=== PATIENT | male | born 1970 | race Caucasian/White ===

== ENCOUNTER 2016-11-09 18:57 | Emergency (ER) | payer OTHER ==
[~2016-11-09] VITALS: Ht 182.9 cm; Wt 97.7 kg
[2016-11-09 19:02] VITALS: BP 126/66; PULSE 120; RESP 20; O2SAT 98
--- NOTE | 2016-11-09 19:45 | ED.REPORT ---
HPI-Extremity Problem Upper Date of Service Nov 09, 2016 ED Provider: Tono Kerns DO Pt is a 45 year old male with a history of HTN who presents to the ED complaining of left arm pain onset today. He c/o associated difficulty moving his left arm and left arm swelling. He denies any other symptoms. Pt reports that he was pulling himself into a truck with his left arm when he felt it a "tearing sensation" followed by pain. Nursing Notes Stated Complaint: LEFT ARM Chief Complaint: Extremity Trauma Nursing Notes Reviewed: Yes Allergies: Coded Allergies: No Known Allergies (Unverified Allergy, Unknown, 11/09/16) General Time Seen by MD: 19:45 Chief Complaint Arm injury left Hx Obtained From: Patient Arrived By: Walk-in Onset Occurred: Onset unknown Symptom Duration: Since onset Caused by: Accidental Location: : Arm left Quality: Painful Severity: Current: Moderate Severity: Maximum: Moderate Recent Healthcare: No recent doctor visit, No recent hospitalization Similar Sx Previous: No Past Medical History Past Medical History Reports: Hypertension Past Surgical History Denies Smoking History Unknown if Ever Smoker Social History Drug Use: Denies drug use Ambulatory Status Independent Review of Systems + Decreased ROM in left arm Constitutional: Denies: Fever Musculoskeletal: Reports: Extremity pain, Extremity swelling Complete sys rev & neg: except as marked. Physical Exam Initial Vital Signs Vital Signs (First) Date Time Temp Pulse Resp B/P Pulse Ox O2 Delivery O2 Flow Rate FiO2 11/09/16 19:02 37.0 120 20 126/66 98 Room Air Initial VS: Reviewed Head / Eyes: Atraumatic, Normocephalic Neck: Supple, Full range of motion Respiratory: Breath sounds normal, Clear to auscultation, No respiratory distress Cardiovascular: Regular rate & rhythm, Heart sounds normal, Intact distal pulses Abdomen / GI: Soft, Non-tender Lower Extremities: Vascular intact, Neuro intact Skin: Warm, Dry, No cyanosis Neurologic: Alert, Oriented, Nonfocal Psychiatric: Mood/affect normal, Behavior normal General/Constitutional: Awake, Alert Upper Extremity / MS: Neurologic intact, Vascular intact Distal tendon bicep rupture left arm Interpretation & Diagnostics X-Ray Interpretation Xray Interpretation: IMPRESSION: No fracture. No osseous lesion. If there are persistent symptoms or clinical suspicion for pathology, then repeat radiographs or advanced imaging (CT, MRI or bone scan) should be considered for further evaluation. Dictated by: Melinda Mathew MD, PhD on 11/09/2016 at 20:26 X-Ray Ordered: Elbow left Interpretation / Wet Read by: Interpret - Radiologist Re-Eval/Medical Decision Source of Hx: Old records Re-Evaluation/Progress : Time of Eval: 20:25 Re-Evaluation/Progress Note: Pt rechecked. Informed pt of plan for discharge. Pt understands and agrees with plan for discharge. F/U instructions and RTER warnings given. All questions addressed. Consultation : Referral / Consult Name: Matthew Gomez MD Consulted With: Orthopedic Call Returned at: 20:52 Note: Consulted with Jason. Discussed pt's case and informed of pt's plan to call for follow up appointment tomorrow. Counseled Regarding: Diagnosis, Need for follow-up, When/why to return to ED Discharge & Departure Impression: Primary Impression: Rupture of distal biceps tendon Encounter type: initial encounter Laterality: left Qualified Code: S46.212A - Strain of muscle, fascia and tendon of other parts of biceps, left arm, initial encounter Disposition: Home Discharge Condition All VS Reviewed: Yes Condition: Stable Patient Instructions: Tendon Rupture (ED) Additional Instructions: Keep your left arm immobilized in the sling until your follow-up with orthopedics. Take Percocet 1-2 every 6 hours for severe pain. Do not drive or drink alcohol or consume acetaminophen while taking Percocet. Take Naprosyn 2x daily for moderate pain. Call the referral orthopedics tomorrow for a follow-up appointment this week. I suspect surgery may be necessary. Return to the Emergency Department for any new or worrisome symptoms. Referrals: Deacon Carrillo MD (PCP) Matthew Gomez MD Attestation Portions of this note were transcribed by Loren Gunderson. I, Dr. Kerns personally performed the history, physical exam and medical decision-making; I reviewed and confirmed the accuracy of the information in the transcribed note. Signed by : Kathie Dominguez, 11/09/16. copies to: Deacon Carrillo MD; Matthew Gomez MD, Todd P DO Nov 09, 2016 19:45 Loren Salcedo Nov 09, 2016 20:00
--- NOTE | 2016-11-09 20:29 | DRSVH ---
PROCEDURE: X-RAY LEFT ELBOW COMPLETE, MINIMUM THREE VIEWS ([id number]) INDICATIONS: distal bicep tendon rupture TECHNIQUE: 3 views of the elbow were acquired. COMPARISON: None. FINDINGS: Bones: No fractures or dislocations. No suspicious bony lesions. Soft tissues: No elbow joint effusion. No suspicious soft tissue calcifications. IMPRESSION: No fracture. No osseous lesion. If there are persistent symptoms or clinical suspicion f or pathology, then repeat radiographs or advanced imaging (CT, MRI or bone scan) should be considered for further evaluation. Dictated by: Melinda Mathew MD, PhD on 11/09/2016 at 20:26 Approved by: Melinda Mathew MD, PhD on 11/09/2016 at 20:27
[2016-11-09] MEDS ORDERED: _HYDROcodone/APAP 5-325 mg Tablet PO PRN (21:05)
[2016-11-12] MEDS ORDERED: LOSA50TA37 PO (12:56)
[2016-11-12] MEDS ORDERED: OXYC-407 PO (12:56)
[2016-11-12] MEDS ORDERED: NAPR500T PO (12:56)
[2016-11-12] MEDS ORDERED: testosterone (12:56)
[2016-11-12] MEDS ORDERED: SERT100T9 PO (12:56)
== END 2016-11-09 21:20 | disposition home or self-care (01) ==
LOC: SED 18:57
DX: S46.212A Strain of muscle, fascia and tendon of other parts of biceps, left arm, initial encounter (principal); X50.1XXA Overexertion from prolonged static or awkward postures, initial encounter; Y93.9 Activity, unspecified; Y92.69 Other specified industrial and construction area as the place of occurrence of the external cause; Y99.0 Civilian activity done for income or pay; I10 Essential (primary) hypertension

== ENCOUNTER 2016-11-13 11:41 | Day surgery (SDC) | payer OTHER ==
[~2016-11-13] VITALS: Ht 182.9 cm; Wt 97.7 kg
[2016-11-13] VITALS (11 sets, daily range): BP systolic 133–155; BP diastolic 83–95; PULSE 71–85; RESP 10–16; O2SAT 94–100
[~2016-11-13 11:41] MED LIST: CeFAZolin 2 Gm/50 mL D5W IV Premix IV ONE; LOSA50TA37 PO; Lactated Ringer's 1,000 ML IV SCH; NAPR500T PO; OXYC-407 PO; SERT100T9 PO; testosterone
[2016-11-13] MEDS ORDERED: Ondansetron 2 mg/mL 2 mL Inj ONE (11:42)
[2016-11-13] MEDS ORDERED: fentaNYL-PF 50 mCg/mL 2 mL Inj ONE ×3 (11:42→16:16)
[2016-11-13] MEDS ORDERED: MetoCLOpramide 5 mg/mL 2 mL Inj ONE (11:42)
[2016-11-13] MEDS ORDERED: Propofol 10,000 mCg/mL 20 mL Inj ONE (11:42)
[2016-11-13] MEDS ORDERED: Dexamethasone 4 mg/mL Inj ONE (11:42)
[2016-11-13] MEDS ORDERED: CeFAZolin 2 Gm/50 mL D5W Duplex Bag IV ONE (12:12)
[2016-11-13] MEDS: Lactated Ringer's 1,000 ML IV SCH ×2 (12:13→14:25)
[2016-11-13] MEDS ORDERED: oxyCODONE-Acetamin 5-325 mg Tablet PO PRN (14:30)
[2016-11-13] MEDS ORDERED: Ketorolac 15 mg/mL Inj IVPUSH ONE (14:30)
--- NOTE | 2016-11-13 14:34 | PCM.ORTHOP ---
Orthopedic Operative Report Date of Service: Nov 13, 2016 Pre Operative Diagnosis Left distal biceps rupture Post Operative Diagnosis Same Procedure Left distal biceps repair Surgeon Surgeon: Niko Bobby MD Assistants: Sukumar Moralez Indication for Procedure Left distal biceps rupture Findings Left distal biceps rupture, full thickness with 4-6 cm retraction Details of Procedure Operative Indications: Cathy Villanueva is a 45-year-old man [id number] presents with left distal biceps rupture. A clear explanation was given to the patient regarding the condition, the conservative and surgical options. It was emphasized that the risks and benefits of surgery include but are not limited to infection, wound healing problems, damage to adjacent structures such as nerves, blood vessels and tendons, termite control representative disability and pain, arthritis, hypersensitivity, deep vein thrombosis, pulmonary embolism and loss of limb or life. The likely post operative recovery and the instructions that are to be followed after surgery were also discussed and explained. The patient was invited to ask questions or seek clarification but there were none. The patient voiced understanding of the entire discussion and requested to move forward. A time-out was performed reconfirming the patients identity, laterality of surgery and proper administration of preoperative antibiotics. After smooth induction of anesthesia the left arm was examined and prepped. After the examination the extremity was prepped and draped in a sterile fashion with 2% Clorhexadine solution. A sterile tourniquet was applied. The incision was clearly marked out. We paused to reconfirm the procedure and laterality one last time. Incision was made with a #15 blade and subsequent sharp dissection was performed with aid of electrocautery to control the bleeding down to the level of the fascia. Appropriate full thickness skin flaps were subsequently developed. There was notable disruption of biceps from the trauma. The interval between the BR and pronator teres was identified and developed down to the level of the joint capsule. The lateral antebrachial cutaneous nerve was identified and retracted. Recurrent veins were isolated and coagulated with a bipolar electrocautery. The forearm was fully supinated and the area vacated by the ruptured biceps was identified. Using blunt disection and the bipolar the radial tuberosity was exposed until there was good visualization. At this time the biceps tendon was palpated retracted into the upper arm and was delivered out of the wound. The tendon's overall condition was ratty. The very end was debrided and then whipstitched in a grasping fashion with a Fiberloop. The allowed for a good grasping stitch. Provisionally it appeared that the tendon could be reduced down to the level of the radial tuberosity. The tuberosity was then debrided and a guidepin was placed slightly distal to the exact center of the insertion point. This was checked with Fluoro to ensure correct placement. The near cortex was then reamed with a 7.5mm reamer. A cortical button was attached to the end of the suture and the elbow flexed. The button was introduced through the bone tunnel flipped and then appropriate tension was applied to reduce the tendon to the bone. The reduction was secure and ROM was checked demonstrated that the biceps was not under too much tension. A interference screw was inserted size 7 x 10 The tourniquet was let down and bleeding was controlled. The wound was irrigated copiously with sterile saline solution. Subcutaneous closure was achieved with 2-0 vicryl followed by interrupted 3-0 nylon suture. Steri strips were then applied. The wound was then dressed in a sterile fashion and a posterior splint was applied. The patient was awoken gently from anesthesia and transferred to the PACU in stable condition. 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 Without the qualified funeral assistant being present, it would have extended the operative procedure and made the procedure technically more difficult to perform. Please keep dressing clean dry and intact. Do not remove dressing until follow- up in clinic. Do not weight-bear on the affected extremity. You will follow up in clinic in 10-14 days for suture removal, and placement of new Steri- Strips. You will follow-up with me in clinic without x-rays at this time. You will follow-up with me at 6 weeks postop and may start weightbearing as tolerated at 6-8 weeks. depending on your motion and pain level. Please keep the affected extremity elevated when possible. You may use ice and/or heat as needed for comfort (preferably ice during the first 48-72 hours. Please feel free to call with any further questions, comments, and/or concerns. You have been given medications for pain, medication for possible constipation which is a side affect of the pain medications. Grafts, Implants: Implants-See Implant Record Complications There were no periprocedural complications identified. Condition Stable Anesthetic Administered: GA Catheters: None Output, Estimated Blood Loss: 10 Blood Admin during surgery: No Surgical Cast or Splint: Other Surgical Specimen Removed: No Specimen sent to Pathology: No copies to: Niko Bobby MD, Christopher L MD Nov 13, 2016 14:34
[2016-11-13] MEDS ORDERED: Lactated Ringer's 500 ML IV PRN (14:59)
[2016-11-13] MEDS ORDERED: Lactated Ringer's 1,000 ML IV SCH (14:59)
--- NOTE | 2016-11-13 14:59 | PCM.HPANE ---
Patient Data Date of Service: Nov 13, 2016 (1300) Surgeon Admitting Provider: Attending Provider:Niko Bobby MD Primary Care Physician:Deacon Carrillo MD Other Provider:Roberta To Anesthesia Reason for Visit Left Biceps Tendon Rupture Ht/WT & BMI Height (Feet): 6 Height (Inches): 0 Weight (Kilograms): 97.7 Body Mass Index 29.00 Allergies Coded Allergies: No Known Allergies (Verified Allergy, Unknown, 11/13/16) Past Anesthesia History Anesthesia History: Denies:: Abnormal Airway, Anesthesia Reactions, Difficult Intubation, Fam Anesthesia Reaction, Fam Malignant Hypertherm, Malignant Hyperthermia Diabetes History Hx Diabetes?: No MRSA MRSA: No Medications Hypertension Medication: Yes (Losartin) Home Meds Incl Beta Elizabeth: No Reported Medications [testosterone] No Conflict Check1 Ml 11/12/16 Sertraline HCl (Sertraline)100 Mg [id number] Mg PO DAILY 30 Days Ref 0 11/12/16 Losartan Potassium 50 Mg [id number] Mg PO DAILY 11/12/16 Naproxen (Naprosyn)500 Mg [id number] Mg PO BID PRN For Pain Ref 0 11/12/16 Oxycodone HCl/Acetaminophen 5-325 (Endocet 5-325)1 Each Tablet1-2 Tablet PO Q4H PRN For Pain 11/12/16 History History of ENT Problems?: No HEENT History: Denies:: Abnormal Airway Difficult Intubation Dysphagia Hearing Problem Sinus Problem TMJ Denture Type: None Teeth Condition: Within Normal Limits Hx of Heart Problems?: No Cardiovascular History: Positive for:: Hypertension Denies:: Abdominal Aortic Aneurism Atrial Fibrillation Cardiac Surgery Chest Pain Congestive Heart Failure Coronary Artery Disease Edema Heart Murmur Irregular Heartbeat Valvular Heart Disease Hx of Respiratory Problem?: No Respiratory History: Denies:: Asthma COPD Chest Surgery Cough Dyspnea Emphysema Hemoptysis Oxygen Administration Pneumonia Pulmonary Embolism Tuberculosis Use of C-PAP Machine Use of Inhalers / NEBS Hx Neurologic Problems?: No Neurological History: Denies:: Alzheimer's Disease Dementia Dizziness Headaches Multiple Sclerosis Parkinson's Disease Seizures TIA Hx of GI Problems?: No Hx of Problems?: No Genitourinary History: Denies:: HX of Hemodialysis HX of Peritoneal Dialysis: No Male Hx: Denies:: Prostate Problems Scrotal Mass Testicular Surgery Skin History: Denies:: History Skin Disorders? Pressure Ulcers Hx Musculoskeletal Problems?: Yes Musculoskeletal History: Positive for:: Back Injury (lower back ) Musculoskeletal Trauma (Bicept tendon tear) Denies:: Degenerative Joint Joint Replacement Myasthenia Gravis Osteoarthritis Rheumatoid Arthritis Hx of Psycho/Social Problems?: No Hx Surgeries?: Yes (2013 rt meniscus repair) Other History: Denies:: Cancer Endocrine Disease Hospitalization Thyroid Disease History Blood Transfusions: Positive for:: Accept Blood Products? Denies:: Blood Transfusions Hx Diabetes: No Hx Alcohol Use: YesAlcoholic Drinks Per Day: 12 beers a weekendHx Substance Use: No Smoking Status: Unknown if Ever Smoker Stop/Bang S-Snoring: Do You Snore Loudly: No T-Tired: feel tired, fatigued: No O-Obsered: Observed not breath: No P-Blood Pressure: treated: Yes B- Body Mass Index > 35 kg/m2: No A- Age over 50: No N- Neck Large Circumference: No G- Gender Male: Yes RANGEL Total Score: 2 Risk Assessment Category Category 1A: Patient has history of documented sleep apnea, and HAS NOT received any narcotic, sedative or anesthesia administration during this stay. Category 1B: Patient has history of documented sleep apnea, and HAS received any narcotic , sedative or anesthesia administration during this stay Category 2: Patient has SUSPECTED Obstructive Sleep Apnea, and HAS received any narcotic , sedative or anesthesia administration during this stay. Category 3: Patient has SUSPECTED Obstructive Sleep Apnea and HAS NOT received narcotic, sedative or anesthesia administration during this stay. Category 4: Outpatient in Procedural Areas with known sleep apnea or who screen positive for High Risk via the STOP/BANG questionnaire. Exam Exam Vital Signs Vital Signs Date Time Temp Pulse Resp B/P Pulse Ox O2 Delivery O2 Flow Rate FiO2 11/13/16 12:20 36.7 72 16 155/95 99 Room Air General Appearance: Alert, Oriented X3, Cooperative, No Acute Distress HEENT/AIRWAY: MP 2 Lungs: Clear to Auscultation Heart: Exam Unremarkable Meds/Labs/Diagnostics Admission Meds Current Medications Lactated Ringer's 1,000 ml @ 120 mls/hr Q8H20M IV Last administered on t 14:25; Start 11/13/16 at 05:00; Stop 11/13/16 at 05:00; Status DC Cefazolin Sodium/ Dextrose/Premix (Ancef Inj/IV Premix) 50 ml @ 100 mls/hr PREOP ONCE IV Last administered on 11/13/16t 14:40; Start 11/13/16 at 06:00; Stop 11/13/16 at 06:29; Status DC Plan Impression Patient chart reviewed, patient interviewed and anesthestic plan with risks, benefits, and alternatives discussed, and informed consent obtained. ASA Physical Status: ASA2 Mod Systemic Disease Anesthetic Plan: GA Bene/Risks/Altern/Consents: Yes HP Complete Prior to Induction: Yes Liban Hudson MD Nov 13, 2016 14:59
[2016-11-13] MEDS ORDERED: MetoCLOpramide 5 mg/mL 2 mL Inj IVPUSH PRN (15:00)
[2016-11-13] MEDS ORDERED: Dexamethasone 4 mg/mL Inj IVPUSH PRN (15:00)
[2016-11-13] MEDS ORDERED: EPHEDrine Sulfate 50 mg/mL Inj IVPUSH PRN (15:00)
[2016-11-13] MEDS ORDERED: Ondansetron 2 mg/mL 2 mL Inj IVPUSH PRN (15:00)
[2016-11-13] MEDS ORDERED: Phenylephrine 10,000 mCg/mL Inj IVPUSH PRN (15:00)
[2016-11-13] MEDS ORDERED: Ropivacaine-PF 0.5% 30 mL Inj EPIDURAL ONE (15:01)
[2016-11-13] MEDS: fentaNYL-PF 50 mCg/mL 2 mL Inj IVPUSH PRN ×2 (16:18→16:34)
[2016-11-13] MEDS: HYDROmorphone 1 mg/mL Inj IVPUSH PRN ×2 (16:23→16:34)
--- NOTE | 2016-11-13 16:40 | PCM.ANEP1 ---
Post Anesthesia PACU Phase 1 Assessment Vital Signs Vital Signs Date Time Temp Pulse Resp B/P Pulse Ox O2 Delivery O2 Flow Rate FiO2 11/13/16 16:25 81 13 141/92 98 Nasal Cannula 4 11/13/16 16:20 75 15 146/84 98 Nasal Cannula 4 11/13/16 16:15 36.9 76 10 145/88 100 Simple Mask 8 11/13/16 12:20 36.7 72 16 155/95 99 Room Air Anesthetic Administered: GA Level of Alertness: Awake, talking MATA's with Equal Strength: Yes Pain: Yes Nausea or Vomiting: No CV Function & Hydration Stable: Yes Airway Device: Oxygen Delivery: Nasal Cannula Lungs: Clear to Auscultation Dermatome Level: Full Sensation PACU Phase 2 Assessment Complications: No Patient Instructions Provided: N/A Liban Hudson MD Nov 13, 2016 16:40
== END 2016-11-13 23:59 | disposition home or self-care (01) ==
LOC: SAS 11:41
PROVIDERS: ATTEND Orthopaedic Surgery
DX: S46.212A Strain of muscle, fascia and tendon of other parts of biceps, left arm, initial encounter (principal); I10 Essential (primary) hypertension; F32.9 Major depressive disorder, single episode, unspecified; X50.0XXA Overexertion from strenuous movement or load, initial encounter; Y93.89 Activity, other specified; Y92.89 Other specified places as the place of occurrence of the external cause; Y99.0 Civilian activity done for income or pay
CPT/HCPCS: 24342; C1713; J0690; J1100; J1170; J1885; J2250; J2405; J2704; J2765; J2795; J3010; J7120